=== PATIENT | male | born 1955 | race Caucasian/White ===

== ENCOUNTER 2017-06-01 19:24 | Inpatient (IN) | payer MEDICARE, MEDICAID ==
[~2017-06-01] VITALS: Ht 170.2 cm; Wt 70.8 kg
--- NOTE | 2017-06-01 20:21 | NUR ---
PT A/OX4 BREATHING EFFORTLESSLY ON ROOM AIR, PT C/O ABD OVERALL PAIN X 30 MINUTES DIRECTOR OF SCOUT WORK, PT DENIES N/V OR DIARRHEA, PT FAMILY AT BEDSIDE, PT IN GOWN, ON MONITOR, IV PLACED, LABS AND URINE COLLECTED AND SENT TO LAB, MD MADE AWARE WILL CONTINUE TO MONITOR.
[2017-06-01] MEDS ORDERED: MORPHINE SULFATE INJ 4 MG/ML DISP.SYRIN ONE (20:26)
[2017-06-01] MEDS ORDERED: ONDANSETRON 4 MG TAB.RAPDIS ONE (20:27)
[2017-06-01] MEDS ORDERED: MORPHINE SULFATE INJ 2 MG/ML DISP.SYRIN IV ONE (20:30)
[2017-06-01] MEDS ORDERED: IV NS 0.9% 1,000 ML BAG IV ONE (20:30)
[2017-06-01] MEDS ORDERED: ONDANSETRON 4 MG TAB.RAPDIS SL ONE (20:30)
[2017-06-01 20:42] LABS: BASOPHILS # (AUTO) 0.2 /CMM (0.0-0.2); BASOPHILS % (AUTO) 2.6 % (0.0-2.0); EOSINOPHILS # (AUTO) 0.2 /CMM (0.0-0.7); EOSINOPHILS % (AUTO) 2.7 % (0.0-6.0); HEMATOCRIT 44 % (39-51); HEMOGLOBIN 15.2 g/dL (13.5-17.5); LYMPHOCYTES # (AUTO) 2.5 /CMM (0.8-4.8); LYMPHOCYTES % (AUTO) 29.4 % (20.0-44.0); MEAN CORPUSCULAR HEMOGLOBIN 32 PG (26.0-33.0); MEAN CORPUSCULAR HGB CONC 35 g/dl (31.0-36.0); MEAN CORPUSCULAR VOLUME 92 fL (80-96); MONOCYTES # (AUTO) 0.8 /CMM (0.1-1.30); MONOCYTES % (AUTO) 9.4 % (2.0-12.0); NEUTROPHILS # (AUTO) 4.7 /CMM (1.8-8.9); NEUTROPHILS % (AUTO) 55.9 % (43.0-81.0); PLATELET COUNT (AUTO) 215 /CMM (150-450); RDW COEFFICIENT OF VARIATION 12.3 (11.5-15.0); RED BLOOD CELL COUNT(AUTO) 4.77 MIL/uL (4.5-6.0); WHITE BLOOD COUNT (AUTO) 8.4 K/uL (4.3-11.0)
[2017-06-01 20:45] LABS: APPEARANCE,URINE Clear (CLEAR); BILIRUBIN,URINE Negative (NEGATIVE); BLOOD, URINE Negative Ery/uL (NEGATIVE); COLOR,URINE Yellow (YELLOW); KETONES,URINE Negative (NEGATIVE); LEUKOCYTE ESTERASE ,URINE Negative (NEGATIVE); NITRITE, URINE Negative (NEGATIVE); PROTEIN,URINE 30 mg/dl (NEGATIVE); UGLUCOSE 250 MG/DL mg/dL (NEGATIVE); UROBILINOGEN,URINE 0.2 EU/dL (0.2)
[2017-06-01 20:48] LABS: CREATININE 1.3 mg/dL (0.6-1.3); POTASSIUM 4.3 mmol/L (3.5-5.1)
[2017-06-01 20:54] LABS: ALBUMIN 3.8 g/dL (3.4-5.0); BILIRUBIN,DIRECT 0.1 mg/dL (0.0-0.2); BILIRUBIN,TOTAL 0.3 mg/dL (0.2-1.0); TOTAL PROTEIN, SERUM 8.3 g/dL (6.4-8.2)
[2017-06-01 21:06] LABS: TROPONIN I 0.054 ng/mL (0.00-0.056)
[2017-06-01 21:14] LABS: BACTERIA,URINE Few /HPF (None Seen); SQUAMOUS EPITHELIAL CELL,UR Rare /HPF (None Seen)
[2017-06-01 21:15] LABS: RBC,URINE 0-2 /HPF (0-2); WBC,URINE 0-2 /HPF (0-3)
--- NOTE | 2017-06-01 22:23 | NUR ---
MERNA SPANGLER ([facility]) [phone]
[2017-06-01 22:55] VITALS: BP 154/85
--- NOTE | 2017-06-01 22:55 | NUR ---
MS RN NOTES: RECEIVED PT AND IS A/OX4. PT IS [place] SPEAKING ONLY BUT CAN UNDERSTAND AND SPEAK A LITTLE OF STATELESS. PT HAS IV ON L WRIST AND IS PATENT AND INTACT. PT ON ROOM AIR AND TOLERATING WELL. CALL LIGHT WITHIN PT'S REACH. BED KEPT IN LOW, LOCKED POSITION, AND SIDE RAILS X 2UP. WILL CONTINUE TO MONITOR PT.
[2017-06-01 23:00] VITALS: BP 154/73
[2017-06-01] MEDS: IV NS 0.9% 1,000 ML IV PRN (23:30)
[2017-06-01] MEDS ORDERED: MORPHINE SULFATE INJ 2 MG/ML DISP.SYRIN IV PRN (23:30)
[2017-06-01] MEDS ORDERED: DEXTROSE 50%-WATER 50 ML DISP.SYRIN IV PRN (23:30)
[2017-06-01] MEDS ORDERED: MAG HYDROX/AL HYDROX/SIMETH 30 ML UDC PO PRN (23:30)
[2017-06-01] MEDS ORDERED: ONDANSETRON HCL/PF 4 MG/2 ML VIAL IVP PRN (23:30)
[2017-06-01] MEDS ORDERED: TUBERCULIN,PURIF.PROT.DERIV. 5 TU/0.1 ML VIAL ID ONE (23:30)
--- NOTE | 2017-06-01 23:46 | NUR ---
MS RN NOTES: SPOKE TO MD KLAUDIA Solomon ; INFORMED HIM THAT CANNOT GIVE PPD WE DO NOT HAVE IT ON THIS FLOOR. CHARGE NURSE AWARE. MD AWARE AND HE WILL CHANGE ORDER. ALSO CLARIFICATION FOR ROCEPHIN AND ZITHROMAX IV. SAID HE WILL CHANGE AND FIX ORDER. Addendum: 06/01/17 at 0261 by PARVIZ NESS RN MED NOT AVAIL HERE.
[2017-06-01] MEDS ORDERED: CEFTRIAXONE 1 G VIAL ONE (23:57)
[2017-06-02] MEDS ORDERED: AZITHROMYCIN 500 MG in IV D5W 250 ML IV ONE ×2
[2017-06-02] MEDS ORDERED: CEFTRIAXONE 1 G VIAL IM SCH
[2017-06-02] MEDS: CEFTRIAXONE 1 G in IV NS 0.9% 50 ML IV SCH (00:11)
[2017-06-02] MEDS: BLOOD SUGAR DIAGNOSTIC 1 EACH STRIP IN SCH ×7 (00:11→21:34)
[2017-06-02] MEDS: INSULIN REGULAR, HUMAN 100 UNIT/ML 3 ML VIAL SQ PRN (00:19)
--- NOTE | 2017-06-02 00:20 | NUR ---
MS RN NOTES: BLOOD SUGAR IS 170. NO INSULIN TO BE ADMINISTERED SINCE PT IS NPO.
[2017-06-02] MEDS ORDERED: AZITHROMYCIN 500 MG VIAL ONE (00:37)
--- NOTE | 2017-06-02 01:00 | NUR ---
MS RN NOTES: NG TUBE WAS INSERTED IN LEFT NARE. WAS ABLE TO INJECT AIR AND CONFIRM PLACEMENT WITH SWOOSHING SOUND. 5 MIN UPON INSERTING, PT DID NOT WANT IT IN ANYMORE. EXPLAINED TO PT RISKS AND BENEFITS. PT STILL DOES NOT WANT IT. REMOVED NG TUBE UPON PT'S REQUEST.
--- NOTE | 2017-06-02 04:09 | NUR ---
attempted to get sputum sample. pt unable to perform collection due to an unproductive cough. instructed pt collect sample in sterile canister at bedside when able to produce sputum. jerry ocasio.
[2017-06-02 07:11] LABS: BASOPHILS % (AUTO) 0.4 % (0.0-2.0); EOSINOPHILS # (AUTO) 0.2 /CMM (0.0-0.7); EOSINOPHILS % (AUTO) 1.7 % (0.0-6.0); HEMATOCRIT 41 % (39-51); HEMOGLOBIN 13.9 g/dL (13.5-17.5); LYMPHOCYTES # (AUTO) 1.9 /CMM (0.8-4.8); LYMPHOCYTES % (AUTO) 19.2 % (20.0-44.0); MEAN CORPUSCULAR HEMOGLOBIN 32 PG (26.0-33.0); MEAN CORPUSCULAR HGB CONC 34 g/dl (31.0-36.0); MEAN CORPUSCULAR VOLUME 92 fL (80-96); MONOCYTES # (AUTO) 0.9 /CMM (0.1-1.30); MONOCYTES % (AUTO) 8.7 % (2.0-12.0); NEUTROPHILS # (AUTO) 7.1 /CMM (1.8-8.9); PLATELET COUNT (AUTO) 221 /CMM (150-450); RDW COEFFICIENT OF VARIATION 13.1 (11.5-15.0); RED BLOOD CELL COUNT(AUTO) 4.41 MIL/uL (4.5-6.0); WHITE BLOOD COUNT (AUTO) 10.1 K/uL (4.3-11.0)
[2017-06-02] MEDS ORDERED: MORPHINE SULFATE INJ 4 MG/ML DISP.SYRIN IV PRN (07:30)
[2017-06-02 07:34] LABS: CALCIUM, SERUM 8.1 mg/dL (8.5-10.1); CREATININE 1.1 mg/dL (0.6-1.3); MAGNESIUM 1.9 mg/dL (1.8-2.4); PHOSPHORUS 2.7 mg/dL (2.5-4.9); POTASSIUM 4.1 mmol/L (3.5-5.1)
--- NOTE | 2017-06-02 07:35 | NUR ---
RN OPEN NOTES RECEIVED REPORT FROM APRN NURSE. PATIENT IS IN BED. ALERT AND ORIENTED TO NAME, PLACE AND TIME. MAORI SPEAKER. NO SIGNS AND SYMPTOMS OF DISTRESS. BED IN LOW POSITION, LOCKED AND TWO SIDE RAILS ARE UP FOR SAFETY. CALL LIGHT WITHIN REACH. WILL CONTINUE TO ASSESS AND MONITOR PATIENT
--- NOTE | 2017-06-02 07:39 | NUR ---
MS RN CLOSING NOTES: ALL NEEDS WERE ATTENDED AND ANTICIPATED FOR. PT ON ROOM AIR AND TOLERATING WELL. IV REMAINS IN TACT AND IS BEING INFUSED WITH NS 75ML/HR. PT REMAINS NPO. NO S/S OF DISTRESS NOTED AT THIS TIME. PT ON AIRBORNE ISOLATION PRECAUTIONS TO R/O TB. PT UNDERSTANDS. CALL LIGHT WITHIN PT'S REACH. BED KEPT IN LOW, LOCKED POSITION, AND SIDE RAILS X 2UP. ENDORSED TO AM NURSE FOR EARNEST.
[2017-06-02] MEDS ORDERED: LEVO50TA PO (07:47)
[2017-06-02] MEDS ORDERED: PARO20TA7 PO (07:47)
[2017-06-02] MEDS ORDERED: GLIP5TAB13 PO (07:47)
[2017-06-02] MEDS ORDERED: PRAV20TA4 PO (07:47)
[2017-06-02] MEDS ORDERED: BENA40TA2 PO (07:47)
[2017-06-02] MEDS ORDERED: FURO20TA4 PO (07:47)
[2017-06-02] MEDS ORDERED: ISOS60TA4 PO (07:47)
[2017-06-02] MEDS ORDERED: METF850T2 PO (07:47)
[2017-06-02] MEDS ORDERED: CLOP75TA15 PO (07:47)
[2017-06-02] MEDS ORDERED: METO50TA16 PO (07:47)
[2017-06-02 08:00] VITALS: BP 159/78
[2017-06-02] MEDS ORDERED: TUBERCULIN,PURIF.PROT.DERIV. 5 TU/0.1 ML VIAL ID ONE (08:00)
[2017-06-02] MEDS: ENOXAPARIN SODIUM 40 MG/0.4 ML DISP.SYRIN SQ SCH (08:43)
--- NOTE | 2017-06-02 08:44 | NUR ---
SPUTUM COLLECTED. LAB NOTIFIED
--- NOTE | 2017-06-02 08:44 | NUR ---
PPD ADMINISTERED ON THE RIGHT FOREARM Addendum: 06/02/17 at 1719 by MARISELA ZARAGOZA RN PDD READING SHOULD BE DONE OF 06/05 8:30AM
[2017-06-02] MEDS: ALBUTEROL FS 2.5 MG/0.5 ML VIAL.NEB NEB SCH ×5 (08:57→19:55)
[2017-06-02] MEDS: IPRATROPIUM NEB FS 0.5 MG/2.5 ML AMPUL.NEB NEB SCH ×5 (08:58→19:55)
--- NOTE | 2017-06-02 10:00 | NUR ---
LAB CALLED. NOT ENOUGH SPUTUM COLLECTED. WILL ATTEMPT TO COLLECT MORE.
[2017-06-02] MEDS: IV NS 0.9% 1,000 ML IV PRN (15:04)
--- NOTE | 2017-06-02 15:55 | NUR ---
PATIENT IS OFF THE FLOOR FOR SMALL BOWEL FOLLOW THROUGH
[2017-06-02 16:00] VITALS: BP 147/80
[2017-06-02] MEDS ORDERED: DIATR MEGLU/DIATRIZOATE SODIUM 120 ML BOTTLE (GASTROGRAPHIN) ONE (16:02)
--- NOTE | 2017-06-02 16:35 | NUR ---
RT NOTE: PATIENT ABSENT FROM DEPARTMENT AT THIS TIME. RESPIRATORY TREATMENT DEFERRED.
--- NOTE | 2017-06-02 17:56 | NUR ---
PATIENT BACK TO FLOOR. BLOOD SUGAR CHECKED: 160 - NPO NO COVERAGE
--- NOTE | 2017-06-02 18:16 | NUR ---
DR ESCALANTE MADE AWARE OF SMALL BOWEL FOLLOW THROUGH. STARTED PATIENT ON FULL LIQUID
--- NOTE | 2017-06-02 18:23 | NUR ---
RM CLOSING NOTES PATIENT IS IN BED. PATIENT IS ALERT AND ORIENTED TO NAME, PLACE AND TIME. MAC[place]ONIAN SPEAKING WITH LIMITED SOUTH [place]OREAN. NO SIGNS AND SYMPTOMS OF DISTRESS. BED IN LOW POSITION, LOCKED AND TWO SIDE RAILS ARE UP. CALL LIGHT WITHIN REACH FOR SAFETY. ALL NURSING CARE PROVIDED. PATIENT REMAINED SAFE, CLEAN AND DRY. WILL ENDORSE TO FILLING AND STAPLING MACHINE OPERATOR NURSE.
--- NOTE | 2017-06-02 19:20 | NUR ---
RN OPENING NOTES RECEIVED PATIENT IN BED, ALERT AND ORIENTED, NO SOB NOTED, WITH NO COMPLAINT OF PAIN AT THIS TIME AND IN NO ACUTE DISTRESS. ALL PATIENT'S NEEDS ATTENDED TO, PLACED CALL LIGHT WITHIN EASY REACH. BED PLACED IN LOW POSITION AND LOCKED IN PLACE. WILL CONTINUE TO MONITOR.
[2017-06-02 20:00] VITALS: BP 156/87
--- NOTE | 2017-06-02 21:34 | NUR ---
RN NOTE ACCU-CHECK PERFORMED AND NOTED PT WITH BS @ 221 MG/DL. PT REFUSED INSULIN SSI TO BE ADMINISTERED. EXPLAINED RISKS AND BENEFITS TO PT X 3 BUT PT CONTINUES TO REFUSE. PER PT HE DID NOT EAT SO MUCH DINNER. RESPECTED PT'S DECISION. WILL CONTINUE TO MONITOR.
[2017-06-02] MEDS: AZITHROMYCIN 500 MG in IV D5W 250 ML IV SCH (22:48)
[2017-06-02 22:55] VITALS: BP 156/87
[2017-06-02] MEDS ORDERED: AZITHROMYCIN 250 MG TABLET PO SCH ×2 (23:00)
--- NOTE | 2017-06-02 23:30 | NUR ---
RN NOTE PATIENT NOTED TO HAVE ELEVATED BP, INFORMED DR. RUDOLPH WITH NEW ORDER FOR BP MEDICATION. ALL ORDERS NOTED AND CARRIED OUT. PATIENT AWARE AND AGREES WITH PLAN OF CARE. PT WITH NO C/O ABDOMINAL PAIN AT THIS TIME, DENIES NAUSEA, NO VOMITING, NO DIZZINESS. WILL CONTINUE TO MONITOR.
[2017-06-02] MEDS ORDERED: METOPROLOL TARTRATE 50 MG TABLET PO ONE (23:45)
[2017-06-03] MEDS: CEFTRIAXONE 1 G in IV NS 0.9% 50 ML IV SCH (00:11)
[2017-06-03] MEDS: BLOOD SUGAR DIAGNOSTIC 1 EACH STRIP IN SCH ×6 (01:15→21:24)
--- NOTE | 2017-06-03 01:15 | NUR ---
RN NOTE ACCU-CHECK PERFORMED AND NOTED PT WITH BS @ 201 MG/DL. PT REFUSED INSULIN SSI TO BE ADMINISTERED. EXPLAINED RISKS AND BENEFITS X 3 BUT PT CONTINUES TO REFUSE. PER PT HE DOESN'T NEED INSULIN. RESPECTED PT'S DECISION. WILL CONTINUE TO MONITOR.
--- NOTE | 2017-06-03 02:48 | NUR ---
RN NOTE PATIENT C/O PAIN FROM IV PERIPHERAL LINE ON LEFT WRIST. STARTED A NEW IV PERIPHERAL LINE ON PT'S LFA G#18, WITH GOOD BLOOD RETURN, FLUSHED WITH 10CC NS, PT TOLERATED WELL. IVF INFUSING WELL ORDERED. WILL CONTINUE TO MONITOR.
--- NOTE | 2017-06-03 05:05 | NUR ---
RN NOTE ACCU-CHECK PERFORMED AND NOTED PT WITH BS @ 154 MG/DL. PT REFUSED INSULIN SSI TO BE ADMINISTERED. PER PT HE DOES NOT USE INSULIN AT HOME AND DOES NOT NEED IT.EXPLAINED RISKS AND BENEFITS TO PT X 3 BUT PT CONTINUES TO REFUSE. RESPECTED PT'S DECISION. WILL CONTINUE TO MONITOR.
--- NOTE | 2017-06-03 06:42 | NUR ---
RN NOTE PATIENT IN BED, ASLEEP BUT EASILY AROUSABLE, ALERT AND ORIENTED X 4, NO SOB NOTED, BREATHING EVEN AND UNLABORED, IN NO ACUTE DISTRESS. IVF INFUSING WELL VIA IV LINE ON LFA G#18. WILL ENDORSE TO AM SHIFT NURSE FOR CONTINUITY OF CARE. ALL PATIENT'S NEEDS ATTENDED TO, CALL LIGHT PLACED WITHIN EASY REACH.
[2017-06-03] MEDS: IV NS 0.9% 1,000 ML IV PRN ×2 (06:45→17:11)
[2017-06-03] MEDS: IPRATROPIUM NEB FS 0.5 MG/2.5 ML AMPUL.NEB NEB SCH ×4 (07:00→20:28)
[2017-06-03] MEDS: ALBUTEROL FS 2.5 MG/0.5 ML VIAL.NEB NEB SCH ×4 (07:00→20:28)
--- NOTE | 2017-06-03 07:03 | NUR ---
RT HHN TX GIVEN, PATIENT HAS CLEAR B/S. PATIENT HAS STRONG DRY COUGH, ON ROOM AIR WITH NO SOB OR DISTRESS. TRIED TO GET AF[employer] SPUTUM BUT PATIENT HAS NO SPUTUM TO GIVE.
--- NOTE | 2017-06-03 07:39 | NUR ---
RN OPEN NOTES RECEIVED REPORT FROM CIVIL SERVICE WORKER NURSE. PATIENT IS IN BED, ALERT AND ORIENTED TO NAME, PLACE AND TIME. HUNGARIAN SPEAKING. BED IN LOW POSITION, LOCKED AND TWO SIDE RAILS ARE UP. CALL LIGHT WITHIN REACH FOR SAFETY. NO SIGNS AND SYMPTOMS OF DISTRESS. WILL CONTINUE TO ASSESS AND MONITOR PATIENT
[2017-06-03 08:00] VITALS: BP 130/76
[2017-06-03] MEDS: METOPROLOL TARTRATE 50 MG TABLET PO SCH ×2 (08:07→21:23)
[2017-06-03] MEDS: BENAZEPRIL HCL 20 MG TABLET PO SCH (08:07)
[2017-06-03] MEDS: ENOXAPARIN SODIUM 40 MG/0.4 ML DISP.SYRIN SQ SCH (08:08)
[2017-06-03] MEDS: INSULIN REGULAR, HUMAN 100 UNIT/ML 3 ML VIAL SQ PRN ×4 (08:13→21:30)
[2017-06-03 16:00] VITALS: BP 106/62
--- NOTE | 2017-06-03 18:26 | NUR ---
RN CLOSING NOTES: PATIENT IS IN BED. AWAKE, ALERT AND ORIENTED TO NAME, PLACE AND TIME. [place]GOL[place] SPEAKING. NO SIGNS AND SYMPTOMS OF DISTRESS. ALL NEEDS WERE ATTENDED AND ANTICIPATED FOR. PT ON ROOM AIR AND TOLERATING WELL. NEGATIVE PRESSURE ROOM TO R/O TB. PT'S LEFT AC 18G REMAINS INTACT AND CURRENTLY RUNNING NS AT 75ML/HR. CALL LIGHT WITHIN PT'S REACH. BED KEPT IN LOW POSITION, LOCKED AND 2 ASIDE RAILS ARE UP. PLEASE WATCH PATIENT VITAL SIGNS. WILL ENDORSE TO STONE ROUGHER NURSE FOR EARNEST.
--- NOTE | 2017-06-03 19:15 | NUR ---
ms/rn opening notes RECEIVED PATIENT IN BED, ON ISOLATION TO R/O TB, AIRBORNE PRECAUTION. ALERT, ORIENTED. COOPERATIVE TO CARE. FRENCH SPEAKER, VERBALIZE NO PAIN. RECEIVED ENDORESEMENT FROM AM RN TO [facility]. WILL CHECK PATIETN B/P, BS AND COLLECT SPUTUM/ ASSIST WITH CARE AND IV SITE W/ NO S/S OF INFILTRATION.
[2017-06-03 20:00] VITALS: BP 133/71
[2017-06-03] MEDS: AZITHROMYCIN 500 MG in IV D5W 250 ML IV SCH (23:41)
[2017-06-04] MEDS: BLOOD SUGAR DIAGNOSTIC 1 EACH STRIP IN SCH ×6 (01:11→21:13)
[2017-06-04] MEDS: CEFTRIAXONE 1 G in IV NS 0.9% 50 ML IV SCH ×2 (01:11→23:43)
[2017-06-04] MEDS: INSULIN REGULAR, HUMAN 100 UNIT/ML 3 ML VIAL SQ PRN ×4 (01:21→21:29)
--- NOTE | 2017-06-04 03:28 | NUR ---
MS/RN NOTES LABS CALLED FOR SPUTUM COLLECTED #1, WILL SOCK AND STOCKING IRONER PER LAB
--- NOTE | 2017-06-04 06:21 | NUR ---
317-2 MS/RN NOTES PATIENT IN BED, ABLE TO SLEEP DURING THE NIGHT, BLOOD SUGAR MONITORING, VERBALIZE NO PAIN. RESPIRATIONS EVEN AND UNLABORED, CALL LIGHTS WITHIN REACH, BED IN LOCK POSITION. SKIN WARM TO TOUCH. WILL CONTINUE TO MONITOR.
--- NOTE | 2017-06-04 07:42 | NUR ---
RN OPEN NOTES RECEIVED REPORT FROM FOOD DEHYDRATOR OPERATOR NURSE. PATIENT IS IN BED, ALERT AND ORIENTED TO NAME, PLACE AND TIME. NO SIGNS AND SYMPTOMS OF DISTRESS. BED IN LOW POSITION, LOCKED AND TWO SIDE RAILS ARE UP. CALL LIGHT WITHIN REACH FOR SAFETY. WILL CONTINUE TO MONITOR AND ASSESS PATIENT THROUGHOUT MY SHIFT.
[2017-06-04 08:00] VITALS: BP 102/59
[2017-06-04] MEDS: ALBUTEROL FS 2.5 MG/0.5 ML VIAL.NEB NEB SCH (08:03)
[2017-06-04] MEDS: IPRATROPIUM NEB FS 0.5 MG/2.5 ML AMPUL.NEB NEB SCH (08:03)
[2017-06-04] MEDS: METOPROLOL TARTRATE 50 MG TABLET PO SCH ×2 (08:14→21:14)
[2017-06-04] MEDS: ENOXAPARIN SODIUM 40 MG/0.4 ML DISP.SYRIN SQ SCH (08:15)
[2017-06-04] MEDS: BENAZEPRIL HCL 20 MG TABLET PO SCH (08:15)
--- NOTE | 2017-06-04 17:15 | NUR ---
DR ESCALANTE MADE AWARE TO COMPLETE MED RECON
--- NOTE | 2017-06-04 19:42 | NUR ---
RN CLOSING NOTES GAVE REPORT FOR WELDER FIRST CLASS NURSE. PATIENT IS IN BED. ALERT AND ORIENTED TO NAME, PLACE AND TIME. NO SIGNS AND SYMPTOMS OF DISTRESS. BED IN LOW POSITION, LOCKED AND TWO SIDE RAILS ARE UP. CALL LIGHT WITHIN REACH FOR SAFETY. ALL NURSING CARE ANTICIPATED AND ATTENDED. PATIENT KEPT CLEAN, DRY AND SAFE. NEED TO COLLECT ONE LAST SPUTUM.
--- NOTE | 2017-06-04 19:57 | NUR ---
MS/RN OPENING NOTES PATIENT IN BED, ALERT, OREINTED X3, RESPIRATIONS EVEN AND UNLABORED, ABLE TO VERBALIZE NEEDS, NO PAIN REPORTED AND WATCHING TV, DISCUSSED PLAN OF CARE, WILL COLECT SPUTUM IN FOOD ANALYST,MEDICATIONS AT BED SIDE INFORMED FROM HOME INFORMED THE NEED TO BE PLACED SAFELY WITH PHARMACY AND WILL KEEP UNTIL DISCHARGE. BLOOD SUGAR MONITORING WILL MONITOR. CALL LIGHTS WITHIN REACH, BED IN LOCK POSITION.
[2017-06-04 20:00] VITALS: BP 139/74
[2017-06-04] MEDS: AZITHROMYCIN 500 MG in IV D5W 250 ML IV SCH (22:59)
[2017-06-05] MEDS: BLOOD SUGAR DIAGNOSTIC 1 EACH STRIP IN SCH ×6 (00:23→22:22)
[2017-06-05] MEDS: INSULIN REGULAR, HUMAN 100 UNIT/ML 3 ML VIAL SQ PRN ×5 (00:27→22:30)
--- NOTE | 2017-06-05 06:14 | NUR ---
MS/RN 317-2 PATIENT IN BED, ABLE TO SLEEP DURING THE NIGHT. RESPIRATIONS EVEN AND UNLABORED, SKIN WARM TO TOUCH, COOPERATIVE TO CARE, IV ATB INFUSED W/NO S/S OF ADVERSE REACTION, ABLE TO DRINK FLUIDS WITH BRP. NO PAIN REPORTED OR OBSERVED. SPUTUM #3 COLLECTED AND SENT TO LABS.CALL LIGHTS WITHIN REACH, BED IN LOCK POSITION. WILL CONTINUE TO MONITOR.
--- NOTE | 2017-06-05 07:30 | NUR ---
MS RN NOTES PATIENT RECEIVED RESTING INSIDE ROOM. AWAKE, ALERT AND ORIENTED. ABLE TO MAKE NEEDS KNOWN AND FOLLOW SIMPLE INSTRUCTIONS. BREATHING EVEN AND UNLABORED. NO SOB OR ACUTE DISTRESS NOTED. DENIES ANY PAIN OR DISCOMFORT. NO CHANGES IN LOC NOTED AT THIS TIME. PATIENT CALM AND RELAXED. WILL CONTINUE TO MONITOR. MAINTAINED AIRBORNE ISOLATION PRECAUTION. BED LOCKED AND IN LOW POSITION. BILATERAL UPPER SIDE RAILS UP AND LOCKED. WILL CONTINUE TO MONITOR
[2017-06-05 08:00] VITALS: BP 108/54
[2017-06-05] MEDS: BENAZEPRIL HCL 20 MG TABLET PO SCH (08:54)
[2017-06-05] MEDS: METOPROLOL TARTRATE 50 MG TABLET PO SCH ×2 (08:54→22:23)
[2017-06-05] MEDS: ENOXAPARIN SODIUM 40 MG/0.4 ML DISP.SYRIN SQ SCH (08:55)
[2017-06-05 16:00] VITALS: BP 135/76
[2017-06-05] MEDS: METFORMIN 850 MG TABLET PO SCH (16:54)
[2017-06-05] MEDS: LACTOBACILLUS RHAMNOSUS GG 1 EACH CAP.SPRINK PO SCH (16:54)
[2017-06-05] MEDS ORDERED: METOPROLOL TARTRATE 50 MG TABLET PO SCH (17:00)
--- NOTE | 2017-06-05 19:01 | NUR ---
MS RN NOTES PATIENT RESTING INSIDE ROOM, AWAKE, ALERT AND ORIENTED. ABLE TO MAKE NEEDS KNOWN AND FOLLOW SIMPLE INSTRUCTIONS. VERBALLY RESPONSIVE AND RESPONDS TO VERBAL AND TACTILE STIMULI. BREATHING EVEN AND UNLABORED. NO SOB OR ACUTE DISTRESS NOTED AT THIS TIME. PATIENT DENIES ANY PAIN OR DISCOMFORT AT THIS TIME. PATIENT CALM AND RELAXED. NO CHANGES IN LOC NOTED AT THIS TIME. PATIENT AFEBRILE, SKIN DRY AND WARM TO TOUCH. WILL ENDORSE TO INCOMING SHIFT. BED LOCKED AND IN LOW POSITION, BILATERAL UPPER SIDE RAILS UP AND LOCKED. CALL LIGHT WITHIN EASY REACH
--- NOTE | 2017-06-05 19:07 | NUR ---
MS/RN OPENING NOTES PATIENT IN BED, AWAKE, ALERT X3, ABLE TO VERBALIZE NEEDS, RESPIRATIONS EVEN AND UNLABORED , ON AIRBORNE PRECAUTION, NO PAIN VERBALIZE, ENDORSE BY AM FOR EARNEST. WILL CONTINUE TO PROVIDE CARE. CALL LIGHTS WITHIN REACH, BED IN LOCK POSITION.
--- NOTE | 2017-06-05 19:21 | NUR ---
MS RN CLOSING NOTES ENDORSED TO PM SHIFT FOR CONTINUITY OF CARE. ALL NURSING NEEDS ATTENDED AND MET. PROVIDED WITH CALM, SAFE, HAZARD-FREE ENVIRONMENT. PATIENT KEPT CLEAN, DRY AND COMFORTABLE. CALL LIGHT WITHIN EASY REACH.
[2017-06-05 20:00] VITALS: BP 136/70
[2017-06-05 20:28] VITALS: BP 136/70
[2017-06-06] MEDS: BLOOD SUGAR DIAGNOSTIC 1 EACH STRIP IN SCH ×5 (00:06→17:19)
[2017-06-06] MEDS: AZITHROMYCIN 500 MG in IV D5W 250 ML IV SCH (00:06)
[2017-06-06] MEDS: INSULIN REGULAR, HUMAN 100 UNIT/ML 3 ML VIAL SQ PRN ×4 (00:30→17:21)
[2017-06-06] MEDS: CEFTRIAXONE 1 G in IV NS 0.9% 50 ML IV SCH (01:20)
--- NOTE | 2017-06-06 06:31 | NUR ---
317-2 MS/RN NOTES PATIENT IN BED, ABLE TO SLEEP DURING THE NIGHT, MONITORING FOR S/S OF HYPO/HYPERGLYCEMIA, ON AIRBORNE ISOLATION, SKINWARM TO TOUCH, ON ROOM AIR, RESPIRATIONS EVEN AND UNLABORED,, WILL ENDORSE TO AM RN FOR EARNEST, BED IN LOCK POSITION, CALL LIGHTS WIHTIN REACH, WILL MONITOR.
[2017-06-06] MEDS ORDERED: LEVOTHYROXINE SODIUM 50 MCG TABLET PO SCH (07:30)
--- NOTE | 2017-06-06 07:34 | NUR ---
MS RN NOTES PATIENT RESTING INSIDE ROOM, SLEEPING BUT EASILY AROUSABLE THROUGH VERBAL AND TACTILE STIMULI. BREATHING EVEN AND UNLABORED. NO SOB OR ACUTE DISTRESS NOTED AT THIS TIME. PATIENT AFEBRILE, SKIN DRY AND WARM TO TOUCH. NO CHANGES IN LOC NOTED AT THIS TIME. MAINTAINED AIRBORNE ISOLATION. WILL CONTINUE TO MONITOR. BED LOCKED AND IN LOW POSITION, BILATERAL UPPER SIDE RAILS UP AND LOCKED. CALL LIGHT WITHIN EASY REACH
[2017-06-06 08:00] VITALS: BP 122/61
[2017-06-06] MEDS: METFORMIN 850 MG TABLET PO SCH ×2 (08:27→17:19)
[2017-06-06] MEDS: LACTOBACILLUS RHAMNOSUS GG 1 EACH CAP.SPRINK PO SCH ×2 (08:28→17:19)
[2017-06-06] MEDS: BENAZEPRIL HCL 20 MG TABLET PO SCH (08:28)
[2017-06-06] MEDS: METOPROLOL TARTRATE 50 MG TABLET PO SCH (08:30)
[2017-06-06] MEDS: ENOXAPARIN SODIUM 40 MG/0.4 ML DISP.SYRIN SQ SCH (08:33)
[2017-06-06] MEDS ORDERED: CLOPIDOGREL BISULFATE 75 MG TABLET PO SCH (09:00)
[2017-06-06] MEDS ORDERED: glipiZIDE 5 MG TABLET PO SCH (09:00)
[2017-06-06] MEDS ORDERED: PAROXETINE HCL 20 MG TABLET PO SCH (09:00)
[2017-06-06] MEDS ORDERED: ATORVASTATIN 10 MG TABLET PO SCH (09:00)
[2017-06-06] MEDS ORDERED: BENAZEPRIL HCL 20 MG TABLET PO SCH (09:00)
[2017-06-06] MEDS ORDERED: ISOSORBIDE MONONITRATE 20 MG TABLET PO SCH (09:00)
[2017-06-06] MEDS ORDERED: FUROSEMIDE 20 MG TABLET PO SCH (09:00)
[2017-06-06 16:00] VITALS: BP 104/61
--- NOTE | 2017-06-06 18:54 | NUR ---
MS RN NOTES RECEIVED REPORT FOR MICROBIOLOGY SPUTUM TEST WITH NEGATIVE RESULTS. PATIENT FOR DISCHARGE TODAY. DISCHARGE TEACHING AND EDUCATION PROVIDED TO PATIENT AND FAMILY. VERBALIZED UNDERSTANDING. PATIENT LEFT UNIT AT 1845 IN STABLE CONDITION. BREATHING EVEN AND UNLABORED. NO CHANGES IN LOC NOTED. NO SOB OR ACUTE DISTRESS NOTED. IV REMOVED WITH MINIMAL BLEEDING NOTED. PATIENT AFEBRILE, SKIN INTACT, DRY AND WARM TO TOUCH. ALL BELONGINGS COMPLETE UPON DISCHARGE. NO REPORT OF MISSING BELONGINGS. HOME MEDICATIONS OBTAINED FROM PHARMACY AND GIVEN TO PATIENT. PATIENT ESCORTED TO PARKING LOT, LEFT HOSPITAL VIA PRIVATE CAR WITH FAMILY.
== END 2017-06-06 18:48 | disposition home or self-care (01) | DRG 389 ==
LOC: ER 19:29 → MED 22:50
PROVIDERS: ADMIT Internal Medicine; ATTEND Internal Medicine
DX: K56.7 Ileus, unspecified (principal); I31.3 Pericardial effusion (noninflammatory); E11.65 Type 2 diabetes mellitus with hyperglycemia; K76.0 Fatty (change of) liver, not elsewhere classified; J98.4 Other disorders of lung; K52.9 Noninfective gastroenteritis and colitis, unspecified; I25.10 Atherosclerotic heart disease of native coronary artery without angina pectoris; I25.2 Old myocardial infarction; I10 Essential (primary) hypertension; Z79.84 Long term (current) use of oral hypoglycemic drugs; Z98.61 Coronary angioplasty status
CPT/HCPCS: 36415; 71045-TC; 71250-TC; 74250-TC; 80048-TC; 80061-TC; 80076-TC; 81000-TC; 82962-TC; 83605-TC; 83690-TC; 83735-TC; 83880; 84100-TC; 84484-TC; 85025-TC; 86301; 86580-TC; 87040-TC; 87081-TC; 87116; 87206; 93307-TC; A4216; A4606; A6402; J0456; J0696; J1815; J2270; J7030; J7060; Q0162; Q9963; Z7610